=== PATIENT | female | born 1935 | race African-American/Black ===

== ENCOUNTER 2021-06-30 12:05 | Emergency (ER) | payer BC, OTHER ==
[~2021-06-30] VITALS: Ht 157.5 cm; Wt 61.2 kg
[~2021-06-30 12:05] MED LIST: ATEN-41 PO; DILT240C91 PO; GLU500 PO; GLYB2.5T4 PO; LEVO125T8 PO; LOSA100T3 PO; LOVA40TA75 PO; METO25TA6 PO
[2021-06-30 12:16] VITALS: BP_SYST 167
--- NOTE | 2021-06-30 12:20 | NUR ---
Patient to ER bed 2 to gown for evaluation. Side rails up.
--- NOTE | 2021-06-30 12:21 | NUR ---
Pt BIBA BLS coming from home due to feeling weak, fatigue, and tremors for the past 4 hours. Pt is A&Ox4. No pain. Skin intact. Neuro checks within normal limits. Stroke symptoms negative.VSS. No chest pain and no sob. Denies n/v. NKA. Has hx of HTN and DM. Bed in lowest position.
--- NOTE | 2021-06-30 12:22 | NUR ---
ER at bedside examining patient.
[2021-06-30 12:37] LABS: BASOPHILS # (AUTO) 0.1 K/uL (0.0-0.2); BASOPHILS % (AUTO) 0.9 % (0.0-2.0); EOSINOPHILS # (AUTO) 0.2 K/uL (0.0-0.4); EOSINOPHILS % (AUTO) 2.1 % (0.0-4.0); HEMATOCRIT 34.5 % (36-48); HEMOGLOBIN 11.6 g/dL (12.0-16.0); LYMPHOCYTES # (AUTO) 1.9 K/uL (1.0-5.5); LYMPHOCYTES % (AUTO) 23.2 % (20.5-51.5); MEAN CORPUSCULAR HEMOGLOBIN 28 pg (27-31); MEAN CORPUSCULAR HGB CONC 34 % (32-36); MEAN CORPUSCULAR VOLUME 84 fL (79.0-98.0); MONOCYTES # (AUTO) 0.6 K/uL (0.0-1.0); MONOCYTES % (AUTO) 7.7 % (1.7-9.3); NEUTROPHILS # (AUTO) 5.5 K/uL (1.8-7.7); NEUTROPHILS % (AUTO) 66.1 % (40.0-70.0); PLATELET COUNT (AUTO) 235 K/uL (130-430); RED BLOOD CELL COUNT(AUTO) 4.14 MIL/uL (4.2-6.2); RED CELL DISTRIBUTION WIDTH 14.7 % (9.0-15.0); WHITE BLOOD COUNT (AUTO) 8.3 K/uL (4.8-10.8)
--- NOTE | 2021-06-30 12:39 | NUR ---
Urine collected and sent to lab.
--- NOTE | 2021-06-30 12:44 | NUR ---
EKG performed at BS. Physician given copy of EKG for review.
[2021-06-30 12:47] LABS: ANION GAP 12 (5-15); CALCIUM 8.4 mg/dL (8.4-11.0); CHLORIDE 103 mmol/L (98-107); CREATININE 1.17 mg/dL (0.55-1.30); GLUCOSE 111 mg/dL (70-99); POTASSIUM 3.6 mmol/L (3.5-5.1); SODIUM SERUM 136 mmol/L (136-145); UREA NITROGEN, BLOOD 25 mg/dL (8-21)
[2021-06-30 12:53] LABS: ALANINE AMINOTRANSFERASE 9 U/L (12-78); ALBUMIN 3.5 g/dL (3.4-4.8); ASPARTATE AMINOTRANSFERASE 14 U/L (10-37); TOTAL BILIRUBIN 0.2 mg/dL (0.0-1.0)
[2021-06-30 12:55] LABS: ACETONE, SERUM NEGATIVE (NEGATIVE)
[2021-06-30 13:08] LABS: BILIRUBIN,URINE NEGATIVE (NEGATIVE); BLOOD, URINE NEGATIVE (NEGATIVE); CLARITY/URINE CLEAR (CLEAR); GLUCOSE,URINE NEGATIVE (NEGATIVE); KETONES,URINE NEGATIVE (NEGATIVE); LEUKOCYTE ESTERASE ,URINE NEGATIVE (NEGATIVE); NITRITE, URINE NEGATIVE (NEGATIVE); PROTEIN URINE NEGATIVE (NEGATIVE); UROBILINOGEN,URINE 0.2 (0.2-1.0)
[2021-06-30 13:11] LABS: COLOR,URINE STRAW (YELLOW)
[2021-06-30 13:39] VITALS: BP_SYST 145
--- NOTE | 2021-06-30 14:27 | NUR ---
Patient given written and verbal discharge instructions and verbalizes understanding. DR. AMANDA WEI MD discussed with patient the results and treatment provided. Patient in stable condition. ID arm band removed. Patient educated on pain management and to follow up with PMD. Pain Scale 0/10 Opportunity for questions provided and answered. Medication side effect fact sheet provided.
== END 2021-06-30 14:27 | disposition home or self-care (01) ==
LOC: SED 12:05
DX: R53.1 Weakness (principal); R25.1 Tremor, unspecified; E11.9 Type 2 diabetes mellitus without complications; I10 Essential (primary) hypertension
CPT/HCPCS: 36415; 71045; 80053; 81003; 82009; 82550; 82962; 83605; 85025; 93005; 99285

== ENCOUNTER 2022-04-20 18:48 | Emergency (ER) | payer OTHER ==
[~2022-04-20] VITALS: Ht 160 cm; Wt 63.5 kg
[~2022-04-20 18:48] MED LIST changes: -LOSA100T3 PO; +LOSA100T4 PO
[2022-04-20 19:06] VITALS: BP_SYST 156
--- NOTE | 2022-04-20 20:07 | NUR ---
Pt report received. Pt AAOx4 with c/o a piece of chicken getting stuck in her throat after eating around 1800 tonight. Pt states that she did not choke and airway remains patent. Pt states that she no longer feels like there's anything irritating her throat at this time. Daughter present to bedside.
--- NOTE | 2022-04-20 20:07 | NUR ---
Patient to [facility] for evaluation. Side rails up. Report given to Genaro TALAVERA.
--- NOTE | 2022-04-20 20:15 | NUR ---
Dr. Camejo assessing pt.
[2022-04-20 21:30] VITALS: BP_SYST 134
--- NOTE | 2022-04-20 21:30 | NUR ---
Patient given written and verbal discharge instructions and verbalizes understanding. ER MD discussed with patient the results and treatment provided. Patient in stable condition. ID arm band removed. No Rx given. Patient educated on pain management and to follow up with PMD. Pain Scale 0/10. Opportunity for questions provided and answered. Medication side effect fact sheet provided.
== END 2022-04-20 21:30 | disposition home or self-care (01) ==
LOC: SED 18:48
DX: R09.89 Other specified symptoms and signs involving the circulatory and respiratory systems (principal); R07.0 Pain in throat; E11.9 Type 2 diabetes mellitus without complications; I10 Essential (primary) hypertension; Z79.899 Other long term (current) drug therapy
CPT/HCPCS: 70360-TC; 71045; 99284